=== PATIENT | female | born 1990 | race Caucasian/White ===

== ENCOUNTER 2017-03-06 19:19 | Emergency (ER) | payer OTHER ==
[~2017-03-06] VITALS: Ht 160 cm; Wt 61.4 kg
[2017-03-06 19:39] VITALS: Ht 160 cm; Wt 61.4 kg
[2017-03-06] MEDS ORDERED: IBUP400T22 PO (21:17)
--- NOTE | 2017-03-06 22:08 | ERD ---
ER Documentation Chief Complaint Chief Complaint SINUS PRESSURE X 3 WEEKS, DENIES FEVER, +N/V HPI This is a 26-year-old female presenting to the emergency department complaining of intermittent moderate pressure and headache around the nasal bridge radiating upward for the past 3 weeks. Patient states that she went to an urgent care week ago and was told that she has sinus pressure and instructed her to do the Jenni pot however states that it has not helped her yet. Patient states that she has had a headache earlier today and had an associated episode of nausea and nonbilious nonbloody vomiting. He was to having photophobia. Patient states the pain level right now is 3 out of 10. She states that aspirin gives her relief ROS All systems reviewed and are negative except as per history of present illness. Medications Home Meds Active Scripts Ibuprofen* (Ibuprofen*) 400 Mg Tablet, 400 MG PO Q6H Y for PAIN, #30 TAB Prov:MARY CHRISTENSEN PA-C 03/06/17 Allergies Allergies: Coded Allergies: No Known Allergy (Unverified , 03/06/17) PMhx/Soc Medical and Surgical Hx: pt denies Medical Hx, pt denies Surgical Hx Hx Alcohol Use: Yes (socially) Hx Substance Use: No Hx Tobacco Use: No Smoking Status: Never smoker Physical Exam Vitals Vital Signs Date Time Temp Pulse Resp B/P Pulse Ox O2 Delivery O2 Flow Rate FiO2 03/06/17 19:39 98.7 70 18 112/58 99 Physical Exam GENERAL: well-developed/well-nourished, in no apparent distress, non-toxic appearing HENT: NC/AT, bilateral tympanic membrane is normal with good cone of light, nares patent, oropharynx clear without exudates EYES: Conjunctiva normal, PERRLA, EOMI, no nystagmus noted NECK: Supple, no lymphadenopathy PULM: CTA bilaterally, no rales, rhonchi, or wheezing heard CV: Normal S1S2, RRR, good capillary refill GI: Soft, non-distended, normal bowel sounds, non-tender BACK: No midline tenderness, no masses, No CVAT EXT: No clubbing, cyanosis, or edema NEURO: Alert and orientated to person, place, and time. CN II-IIX intact. Gait and coordination were normal. 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 The migraine versus tension. Differentials include cluster headache, overuse medication headache, subarachnoid hemorrhage, meningitis, stroke. Pain relief was given in the ED with some improvement. Neurology exam was normal and I don't recommend a CT scan at this time, I discussed with patient that it is best for her to follow- up with her primary care physician to get a referral to see a neurologist. hemodynamically stable and neurovascularly intact. Prescriptions have been were given. Discussed to follow up with a primary care physician in the next couple days. Return to the ER if condition worsens or not improving as expected. Patient agreed and understood this plan. Departure Diagnosis: Primary Impression: Headache Condition: Stable Patient Instructions: What Are Migraine and Tension Headaches?, Self-Care for Headaches Referrals: NO PRIMARY,CARE PHYSICIAN Additional Instructions: FOLLOW UP WITH YOUR PRIMARY CARE PHYSICIAN TOMORROW.Return to this facility if you are not improving as expected. Take all medicines as directed. Return to this facility if you are not improving as expected. MARY CHRISTENSEN PA-C Mar 06, 2017 22:08
== END 2017-03-06 21:25 | disposition home or self-care (01) ==
LOC: FTE 19:19
DX: R51 Headache (principal)
CPT/HCPCS: 99283

== ENCOUNTER 2017-03-11 12:06 | Emergency (ER) | payer OTHER ==
[~2017-03-11] VITALS: Ht 160 cm; Wt 62.4 kg
[~2017-03-11 12:06] MED LIST: IBUP400T22 PO
[2017-03-11 12:07] VITALS: Ht 160 cm; Wt 62.4 kg
[2017-03-11] MEDS ORDERED: LIDOCAINE 2%/EPI MPF (SDV) 20 ML VIAL INJ STA (12:38)
[2017-03-11] MEDS ORDERED: IBUP-1542 PO (13:22)
--- NOTE | 2017-03-11 13:25 | ERD ---
ER Documentation Chief Complaint Chief Complaint left hand lac with glass HPI 26-year-old female, right-handed, previously healthy, presents to the emergency department complaining of pain, and active bleeding, after an accidental self- inflicted laceration with a broken glass while doing the dishes. The event occurred approximately 1 hour prior to arrival. The patient refers normal sensation in her hand, full range of motion of her fingers. Tetanus vaccine up to date ROS SYSTEMIC symptoms: no fever, chills, no night sweats, no weight loss EYE symptoms: No blurred vision, no eye discharge OTOLARYNGEAL symptoms: No hearing loss. No ear pain, no sore throat CARDIOVASCULAR symptoms: No chest pain or discomfort, no palpitations. PULMONARY symptoms: No dyspnea, no cough, no wheezing. GASTROINTESTINAL symptoms: No abdominal pain, no nausea, no vomiting, no diarrhea MUSCULOSKELETAL symptoms: No arthralgias, no muscle aches. NEUROLOGY symptoms: No confusion, no syncope, no numbness or tingling. SKIN no rashes Medications Home Meds Active Scripts Ibuprofen* (Motrin*) 600 Mg Tab, 600 MG PO Q8, #30 TAB Prov:KIRILL RUSSELL MD 03/11/17 Ibuprofen* (Ibuprofen*) 400 Mg Tablet, 400 MG PO Q6H Y for PAIN, #30 TAB Prov:MARY CHRISTENSEN PA-C 03/06/17 Allergies Allergies: Coded Allergies: No Known Allergy (Unverified , 03/06/17) PMhx/Soc Denies history of diabetes, hypertension, coronary artery disease Medical and Surgical Hx: pt denies Medical Hx, pt denies Surgical Hx Hx Alcohol Use: Yes Hx Substance Use: Yes (marijuana) Hx Tobacco Use: No Smoking Status: Never smoker Physical Exam Vitals Vital Signs Date Time Temp Pulse Resp B/P Pulse Ox O2 Delivery O2 Flow Rate FiO2 03/11/17 12:07 98.4 69 18 107/58 98 Physical Exam Patient is in mild distress due to pain and bleeding but vital signs stable. Alert and fully oriented. EYES: PERRLA, EOMI, Sclera and conjunctiva appear normal. EARS: Canals clear, tympanic membranes WNL THROAT: Normal oropharynx. NECK: Supple, No lymphadenopathy. Full ROM without pain or tenderness. HEART: RRR, no rubs, murmurs, clicks or gallops. LUNGS: Clear to auscultation. ABDOMEN: Soft, non-tender without masses or hepatosplenomegaly. EXTREMITIES: No edema bilaterally. BACK: Full ROM, no deformity, normal back exam NEURO: Cranial nerves grossly intact, no motor or sensory deficit Skin: Left hand: 2 cm linear laceration, V-shaped located over Tenar area, actively bleeding. No tendon involvement, no foreign body seen. Neurovascular exam intact Results 24 hrs Current Medications Medications (Trade) Dose Ordered Sig/Cass Route PRN Reason Start Time Stop Time Status Last Admin Dose Admin Lidocaine/ Epinephrine (Xylocaine 2%/ Epi Mpf(Sdv)) 20 ml ONCE STAT INJ 03/11/17 12:38 03/11/17 12:40 DC Procedures/MDM 26y/o female, right-handed patient with no significant medical history, presents to the ED c/o pain, bleeding and open wound of her left hand for 2 hours. Vital signs stable, Physical exam unremarkable except for the 2 cm V shaped laceration on left Tenar area. Differential diagnosis include but not limited to: Tendon laceration, foreign body penetration. Physical examination and clinical presentation consistent most likely with laceration of the left hand, neurovascular exam intact. During the ED course the patient received treatment with laceration repaired presenting overall improvement of the symptoms. Procedure: Laceration repair The procedure was explained and consent obtained. Anesthesia: 1% lidocaine without epinephrine locally Location: Tenar area left hand Tendon/Joint/Nerves: No injury Foreign body: None detected after copious irrigation and exploration Technique: Simple Interrupted Sutures Complexity: No subcutaneous sutures/mucosal repair/ edge excision Post Closure Length: 2 cm The patient tolerated the procedure well without complications. Please schedule a follow up appointment with your primary doctor in 2 days for wound check. We recommend stitches removal in 7 days. If the symptoms persist or worsen like severe pain, fever or signs of infection, return to the hospital immediately. Results and clinical impression discussed with patient who agrees with management. The patient is stable to be treated outpatient and will be discharged home with a Rx for ibuprofen and wound care recommendations. Side effects of prescribed NSAID medication (GI distress, edema, bleeding, HTN) were reviewed. The patient was instructed to follow up with the primary care provider in the next 48h. If symptoms persist, worsen or new symptoms develop, then patient should return to the ED immediately. Instructions explained and given to patient in Swedish with acknowledgment and demonstrated understanding. Disclaimer: Inadvertent spelling and grammatical errors are likely due to EHR/ dictation software use and do not reflect on the overall quality of patient care. Also, please note that the electronic time recorded on this note does not necessarily reflect the actual time of the patient encounter. Departure Diagnosis: Primary Impression: Laceration of left hand Condition: Stable Patient Instructions: Laceration, All Referrals: DESHAWN CARRILLO (PCP) Additional Instructions: Thank you very much for allowing us to participate in your care. Your health and safety is our top priority at [facility]. Have prescriptions filled and follow precisely the directions on the label. Follow-up with primary care provider during the next 4 days and bring all the information and medications prescribed. If illness has not improved in 2 days, then make an appointment with primary care provider. If the provider is unavailable, return to the Emergency Department immediately. KIRILL RUSSELL MD Mar 11, 2017 13:25
== END 2017-03-11 13:51 | disposition home or self-care (01) ==
LOC: FTE 12:06
DX: S61.412A Laceration without foreign body of left hand, initial encounter (principal); W25.XXXA Contact with sharp glass, initial encounter; Y92.9 Unspecified place or not applicable
CPT/HCPCS: 12001; Z7502

== ENCOUNTER 2017-03-18 11:12 | Emergency (ER) | payer OTHER ==
[~2017-03-18] VITALS: Ht 160 cm; Wt 61.8 kg
[~2017-03-18 11:12] MED LIST changes: +IBUP-1542 PO
[2017-03-18 11:31] VITALS: Ht 160 cm; Wt 61.8 kg
--- NOTE | 2017-03-18 11:55 | ERD ---
ER Documentation Chief Complaint Chief Complaint SUTURE REMOVAL IN FOR 7 DAYS HPI Patient is a 26-year-old female presenting to the emergency department for suture removal from her left palm. Sutures have been in for 7 days. She has no complaints currently. ROS All systems reviewed and are negative except as per history of present illness. Medications Home Meds Active Scripts Ibuprofen* (Motrin*) 600 Mg Tab, 600 MG PO Q8, #30 TAB Prov:KIRILL RUSSELL MD 03/11/17 Ibuprofen* (Ibuprofen*) 400 Mg Tablet, 400 MG PO Q6H Y for PAIN, #30 TAB Prov:MARY CHRISTENSEN PA-C 03/06/17 Allergies Allergies: Coded Allergies: No Known Allergy (Unverified , 03/06/17) PMhx/Soc Hx Alcohol Use: Yes Hx Substance Use: Yes (marijuana) Hx Tobacco Use: No Physical Exam Vitals Vital Signs Date Time Temp Pulse Resp B/P Pulse Ox O2 Delivery O2 Flow Rate FiO2 03/18/17 11:31 98.3 67 18 118/66 97 Physical Exam Const: Nontoxic, well-appearing female in no acute distress. Skin: For sutures in place over a well-healed laceration of the left palm. Neur: Awake and alert Procedures/MDM 26-year-old female presenting to the emergency department for suture removal. Suture Removal of the left palm by me: 4 Sutures removed with tweezers and scissors without incident. Wound shows no evidence of infection, foreign body, neurologic injury, vascular injury, open joint or tendon laceration. Patient to follow up PRN. Departure Diagnosis: Primary Impression: Encounter for removal of sutures Condition: Fair Patient Instructions: Staple Removal, No Complication Referrals: DESHAWN CARRILLO (PCP) Additional Instructions: Follow up with your PCP as scheduled, sooner if you have any new or worsening symptoms. LARISA PERALTA PA-C Mar 18, 2017 11:55
== END 2017-03-18 12:05 | disposition home or self-care (01) ==
LOC: FTE 11:12
DX: Z48.02 Encounter for removal of sutures (principal)
CPT/HCPCS: 99281